=== PATIENT | female | born 1945 | race Caucasian/White ===

== ENCOUNTER 2016-10-19 08:30 | Day surgery (SDC) | payer MEDICARE, OTHER ==
--- OUTSIDE RECORDS SUMMARY | 2016-10-19 08:35 | XMS REPORT | Continuity of Care Document ---
:1945 Author Organization [facility] ([facility]) Address [address] [place] [address] Phone [phone] Care Team Providers Name Role Phone Jessica Kent Primary Care Provider [phone] Source Comments This disclosure is being made pursuant to the Care Everywhere program, applicable federal and state laws, and may not contain all informaitonavailable regarding this patient.[facility] ([facility]) Active Allergies and Adverse Reactions No Known Allergies Current Medications Prescription Sig. Disp. Refills Start Date End Date Status brimonidine-timolol 1 Drop 2 times Active (COMBIGAN) 0.2-0.5 % daily. Drop 0.2-0.5% ophthalmic solution Hwauspmsjeywi-Un-Xjxx- Take 1 Tab by Active Minerals (MULTIPLE mouth daily. VITAMIN, WOMENS) Tab Rimuuui-Gprobnodj-Eavk Take 1 Tab by Active Tab mouth daily. ALPHA LIPOIC ACID PO Take 1 Tab by Active mouth daily. [place]-3 Fatty Take 1 Cap by Active Acids-Vitamin E (FISH mouth daily. OIL) 1,000 mg Cap VIT A,C & Take 1 Tab by Active E/NIAC/B2/LUT/MN/GLU mouth daily. (EYE-CARMEN PO) vitamin B complex Take 1 Tab by Active (VITAMIN B COMPLEX) mouth daily. tablet SUMAtriptan 50 mg Take 1 Tab by 30 Tab 11 05/21/2013 Active tablet mouth daily as needed. May repeat in 2 hours if needed. Indications: MIGRAINE TRAVATAN Z 0.004 % 06/21/2013 Active drop ophthalmic solution estradiol 0.05 mg/24 Apply 1 Patch 12 Patch 3 12/03/2014 Active hr patch (0.05 mg total) on the skin every week amoxicillin 500 mg Take 1 capsule 30 capsule 0 08/04/2015 Active capsule (500 mg total) by mouth 3 times daily. citalopram 10 mg Take 1 tablet (10 30 tablet 11 04/12/2016 Active tablet mg total) by mouth daily. 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 Surgery as a child--unable to save vision. Can see light/ dark. Fibromyalgia 05/21/2013 Actinic skin damage 07/19/2011 Benign neoplasm of colon 02/07/2006 Diverticulosis of colon (without mention of hemorrhage) 02/07/2006 Immunizations Name Dates Previously Given Next Due Influenza, PF 04/05/2012 Influenza, quadrivalent PF 03/30/2016,05/07/2014 Influenza, unspecified 03/29/2011 Social History Tobacco Use Types Packs/Day Years Used Date Never Smoker Smokeless Tobacco: Never Used Tobacco Cessation:Counseling Given: Yes Comments: Alcohol Use Drinks/Week oz/Week Comments No 0.0 very rarely drinks alcoholic beverages Last Filed Vital Signs Vital Sign Reading Time Taken Blood Pressure 130/84 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 Pulse 96 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 Temperature 37.9 C (100.2 F) 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 Respiratory Rate 18 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 Height 1.575 m (5' 2.01") 09/20/2013 7:01 AM CDT Weight 60.601 kg (133 lb 9.6 oz) 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 Body Mass Index 24.43 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
--- NOTE | 2016-10-19 09:32 | OR ---
Anesthesia Pre Procedure Eval Pre Procedure Evaluation: Last Vital Signs Temp 36.8 C 10/19/16 09:05 Pulse 64 10/19/16 09:05 Resp 16 10/19/16 09:05 BP 118/74 10/19/16 09:05 Pulse Ox 95 10/19/16 09:05 PRE PROCEDURE EVALUATION:: DATE: 10/19/2016 TIME: 03 21 INDICATIONS: Radicular low back pain. Bulging disc at L4 5. PAST MEDICAL HISTORY: No previous epidural steroid injections. EXAM: Lungs clear and equal. Heart rate regular. Patient complains of low back pain radiating into her hips bilaterally. Procedure risks and benefits were explained to and accepted by the patient. ASSESSMENT OF MEDICAL STATUS: No contraindication to epidural injection. PLANNED PROCEDURE : Fluoroscopy-guided epidural injection at L4 5 Home Medications: HOME MEDICATIONS Brimonidine Tartrate/Timolol [Combigan Eye Drops] 1 drop EACHEYE BID 04/20/13 [ Last Taken 09/06/13 09:00] Aspirin/Acetaminophen/Caffeine [Excedrin Migraine Caplet] 1 each PO Q6H PRN [Last Taken Unknown] Back And Body Otc 1 tab PO Q6H PRN 10/15/16 [Last Taken Unknown] Citalopram Hydrobromide [Celexa] 20 mg PO DAILY 10/15/16 [Last Taken Unknown] Ibuprofen [Motrin] 200 - 800 mg PO Q8H PRN 10/15/16 [Last Taken Unknown] Multivitamins [Multivitamin Shahab] 1 cap PO DAILY 10/15/16 [Last Taken Unknown] Naproxen Sodium [Aleve] 220 mg PO BID PRN 10/15/16 [Last Taken Unknown]
[2016-10-19] MEDS ORDERED: IOPAMIDOL 20 ML VIAL IJ ONE (09:46)
[2016-10-19] MEDS ORDERED: LIDOCAINE HCL/PF 5 ML VIAL IJ ONE (09:47)
[2016-10-19] MEDS ORDERED: DEXAMETHASONE SOD PHOSPHATE 10 MG/ML VIAL IJ ONE (09:47)
--- NOTE | 2016-10-19 09:55 | OR ---
Anesthesia Procedure Note - Anesthesia Procedure Note Narrative: Vital Signs - Last Taken Temp 36.8 C 10/19/16 09:05 Pulse 64 10/19/16 09:05 Resp 16 10/19/16 09:05 BP 118/74 10/19/16 09:05 Pulse Ox 95 10/19/16 09:05 10/19/16 09:51 ANESTHESIA PROCEDURE NOTE Date of Procedure: 10/19/2016 Time of procedure: . Performed by: Tien Sanford CRNA Panel Cutter: None. Preprocedure diagnosis: Radicular low back pain. Bulging disc L4 5. Post procedure diagnosis: Same. Procedure: Epidural Steroid Injection at L4 5. Indications: Radicular low back pain. Findings: See below. Details of the procedure: The patient was brought back to operating room #4. The patient was then placed in the prone position. Back was prepped with DuraPrep. Patient was then draped in sterile fashion. Lidocaine 1% was infiltrated to the skin and subcutaneous tissues at the level of the L4 5 interspace. The epidural space was identified using a 20-gauge Tuohy needle with [id number] technique and fluoroscopic guidance. A total of 3 mL of Isovue-200 was injected to confirm needle placement in first the lateral and AP positions. Dexamethasone 10 mg + 5 mL of 1% preservative-free lidocaine was administered to the epidural space after negative aspiration for blood and CSF. The Tuohy needle was removed intact. A Band-Aid was applied to the patient's back. The patient was then placed in a supine position for 5 minutes before returning to the ambulatory surgical unit. A total of 27.7 seconds of fluoroscopy time was utilized. Cumulative dose was 10.08 m/gy. EBL: Minimal. Fluids: N/A. Specimen: N/A. Post procedure condition: The patient tolerated the procedure well. No complications were noted. Thank you for this consultation. Tien Sanford CRNA
[2016-10-19 10:40] VITALS: BP 128/76
== END 2016-10-19 08:31 | disposition home or self-care (01) ==
LOC: AMB 08:30
PROVIDERS: ATTEND Specialist
PROC: 3E0S3BZ Introduction of Anesthetic Agent into Epidural Space, Percutaneous Approach (ICD-10-PCS; 2016-10-19)
PROC: 3E0S33Z Introduction of Anti-inflammatory into Epidural Space, Percutaneous Approach (ICD-10-PCS; principal; 2016-10-19 10:30)
DX: M51.26 Other intervertebral disc displacement, lumbar region (principal); Z68.24 Body mass index [BMI] 24.0-24.9, adult

== ENCOUNTER 2016-11-30 07:58 | Day surgery (SDC) | payer MEDICARE, OTHER ==
--- OUTSIDE RECORDS SUMMARY | 2016-11-30 08:02 | XMS REPORT | Continuity of Care Document ---
:1945 Author Organization [facility] ([facility]) Address [address] [place] [address] Phone [phone] Care Team Providers Name Role Phone Jessica Kent Primary Care Provider [phone] Source Comments This disclosure is being made pursuant to the Care Everywhere program, applicable federal and state laws, and may not contain all informaitonavailable regarding this patient.[facility] ([facility]) Active Allergies and Adverse Reactions No Known Allergies Current Medications Prescription Sig. Disp. Refills Start Date End Date Status brimonidine-timolol 1 Drop 2 times Active (COMBIGAN) 0.2-0.5 % daily. Drop 0.2-0.5% ophthalmic solution Dgbztmdjeaotc-Fu-Qyqr- Take 1 Tab by Active Minerals (MULTIPLE mouth daily. VITAMIN, WOMENS) Tab Cawvfpe-Vjfogjckn-Mkgd Take 1 Tab by Active Tab mouth daily. ALPHA LIPOIC ACID PO Take 1 Tab by Active mouth daily. 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
--- NOTE | 2016-11-30 09:08 | OR ---
Anesthesia Pre Procedure Eval Pre Procedure Evaluation: Last Vital Signs Temp 36.5 C 11/30/16 08:05 Pulse 64 11/30/16 08:05 Resp 16 11/30/16 08:05 BP 120/74 11/30/16 08:05 Pulse Ox 96 11/30/16 08:05 PRE PROCEDURE EVALUATION:: DATE: 11/30/2016 TIME: 854 INDICATIONS: Radicular low back pain. Bulging disc at L4 5. PAST MEDICAL HISTORY: Previous epidural injection approximately 3 or 4 weeks ago. Patient obtained relief from that injection for about 1-1/2 weeks. Her pain has since returned. EXAM: Lungs clear and equal. Heart rate regular. Patient complains of radicular low back pain radiating into her left hip and down into her left leg. Procedure risks and benefits were explained to and accepted by the patient. ASSESSMENT OF MEDICAL STATUS: No contraindication to epidural steroid injection. PLANNED PROCEDURE : Fluoroscopy-guided epidural injection at L4 5 Home Medications: HOME MEDICATIONS Brimonidine Tartrate/Timolol [Combigan Eye Drops] 1 drop EACHEYE BID 04/20/13 [ Last Taken 09/06/13 09:00] Bimatoprost [Lumigan] 1 drop EACHEYE DAILY 11/29/16 [Last Taken Unknown] Citalopram Hydrobromide [Celexa] 10 mg PO DAILY 11/29/16 [Last Taken Unknown] Gabapentin [Neurontin] 300 mg PO HS 11/29/16 [Last Taken Unknown] Meloxicam [Mobic] 7.5 mg PO BID 11/29/16 [Last Taken Unknown]
[2016-11-30] MEDS ORDERED: IOPAMIDOL 20 ML VIAL IJ ONE (09:27)
[2016-11-30] MEDS ORDERED: LIDOCAINE HCL/PF 5 ML VIAL IJ ONE (09:27)
[2016-11-30] MEDS ORDERED: DEXAMETHASONE SOD PHOSPHATE 10 MG/ML VIAL IJ ONE (09:27)
--- NOTE | 2016-11-30 09:40 | OR ---
Anesthesia Procedure Note - Anesthesia Procedure Note Narrative: Vital Signs - Last Taken Temp 36.5 C 11/30/16 08:05 Pulse 59 L 11/30/16 09:30 Resp 18 11/30/16 09:30 BP 140/91 11/30/16 09:30 Pulse Ox 96 11/30/16 09:30 O2 Oxygen Delivery Method Room Air 11/30/16 09:37 ANESTHESIA PROCEDURE NOTE Date of Procedure: 11/30/2016 Time of procedure: 03 16. Performed by: Tien Sanford CRNA Contracting Officer: None. Preprocedure diagnosis: Radicular low back pain. Herniated disc at L4 5.. Post procedure diagnosis: Same. Procedure: Epidural Steroid Injection at L4 5. Indications: Radicular low back pain. Findings: See below. Details of the procedure: The patient was brought back to operating room #4. The patient was then placed in the prone position. Back was prepped with DuraPrep. Patient was then draped in sterile fashion. Lidocaine 1% was infiltrated to the skin and subcutaneous tissues at the level of the L4 5 interspace. The epidural space was identified using a 20-gauge Tuohy needle with [id number] technique and fluoroscopic guidance. A total of 3 mL of Isovue-200 contrast dye was injected in first the AP and then a lateral position to confirm needle placement. Dexamethasone 10 mg + 5 mL of 1% preservative-free lidocaine was administered to the epidural space after negative aspiration for blood and CSF. The Tuohy needle was removed intact. A Band-Aid was applied to the patient's back. The patient was then placed in a supine position for 5 minutes before returning to the ambulatory surgical unit. A total of 24.8 seconds of fluoroscopy time was used. Total dose was 9.5 m/ gy. EBL: Minimal. Fluids: N/A. Specimen: N/A. Post procedure condition: The patient tolerated the procedure well. No complications were noted. Thank you for this consultation. Tien Sanford CRNA
[2016-11-30 10:09] VITALS: BP 138/67
== END 2016-11-30 07:59 | disposition home or self-care (01) ==
LOC: AMB 07:58
PROVIDERS: ATTEND Specialist
PROC: 3E0S3BZ Introduction of Anesthetic Agent into Epidural Space, Percutaneous Approach (ICD-10-PCS; 2016-11-30)
PROC: 3E0S33Z Introduction of Anti-inflammatory into Epidural Space, Percutaneous Approach (ICD-10-PCS; principal; 2016-11-30 08:30)
DX: M51.26 Other intervertebral disc displacement, lumbar region (principal)